=== PATIENT | male | born 2000 | race Caucasian/White ===

== ENCOUNTER → 2025-06-05 | Outpatient (CLI) | payer OTHER | LOC: M WUC 14:03 | PROVIDERS: ATTEND Student in an Organized Health Care Education/Training Program | DX: M25.512 Pain in left shoulder (principal) ==

== ENCOUNTER → 2025-07-25 | Outpatient (CLI) | payer OTHER | LOC: M CARPUL 12:41 | DX: R06.02 Shortness of breath (principal) ==